=== PATIENT | male | born 1970 | race Caucasian/White ===

== ENCOUNTER 2016-12-10 01:42 | Emergency (ER) | payer MEDICAID ==
[~2016-12-10] VITALS: Ht 185.4 cm; Wt 71.0 kg
[2016-12-10 01:47] VITALS: Ht 185.4 cm; Wt 71.0 kg
[2016-12-10] MEDS ORDERED: ONDANSETRON 4 MG INJ IV STA (01:47)
[2016-12-10] MEDS ORDERED: morphine 4 MG/ML VIAL IV STA (01:47)
[2016-12-10] MEDS ORDERED: SOD CHLORIDE 0.9% 1,000 ML IV STA (01:47)
[2016-12-10 02:18] LABS: ADD UMIC YES; URINE BILIRUBIN (Dip) NEGATIVE (NEGATIVE); URINE BLOOD (Dip) 2+ (NEGATIVE); URINE COLOR LT. YELLOW (YELLOW); URINE GLUCOSE (Dip) NEGATIVE (NEGATIVE); URINE KETONES (Dip) NEGATIVE (NEGATIVE); URINE LEUKOCYTE ESTERASE (Dip) NEGATIVE (NEGATIVE); URINE NITRITE (Dip) NEGATIVE (NEGATIVE); URINE TOTAL PROTEIN (Dip) NEGATIVE (NEGATIVE); URINE UROBILINOGEN (Dip) 0.2 E.U./dL (0.1-1.0)
[2016-12-10 02:19] LABS: BASOPHIL # 0.1 10^3/ul (0.0-0.1); BASOPHILS % 0.7 % (0.0-2.0); EOSINOPHILS # 0.8 10^3/ul (0.0-0.5); EOSINOPHILS % 6.9 % (0.0-7.0); HEMATOCRIT 42.9 % (42.0-52.0); HEMOGLOBIN 14.3 g/dl (14.0-18.0); LYMPHOCYTES # 6.3 10^3/ul (0.8-2.9); LYMPHOCYTES % 56.6 % (15.0-51.0); MEAN CORPUSCULAR HEMOGLOBIN 29.4 pg (29.0-33.0); MEAN CORPUSCULAR HGB CONC 33.4 g/dl (32.0-37.0); MEAN CORPUSCULAR VOLUME 87.9 fl (82.0-101.0); MEAN PLATELET VOLUME 10.3 fl (7.4-10.4); MONOCYTE # 0.7 10^3/ul (0.3-0.9); MONOCYTES % 5.9 % (0.0-11.0); NEUTROPHIL # 3.3 10^3/ul (1.6-7.5); NEUTROPHILS % 29.9 % (39.0-77.0); PLATELET COUNT 214 10^3/UL (140-440); RED BLOOD COUNT 4.88 10^6/ul (4.70-6.10); RED CELL DISTRIBUTION WIDTH 13.7 % (11.5-14.5); UNCORRECTED WBC 11.1 10^3/ul (4.8-10.8); WHITE BLOOD COUNT 11.1 10^3/ul (4.8-10.8)
[2016-12-10 02:22] LABS: CONDITION 1; LH ANALYZER COMMENTS 1
[2016-12-10 02:28] LABS: ALBUMIN 4.1 g/dl (3.3-4.9)
[2016-12-10 02:29] LABS: POTASSIUM 3.3 mmol/L (3.5-5.1)
--- NOTE | 2016-12-10 02:30 | RADRPT ---
PROCEDURE: CT Abdomen and pelvis without contrast. CLINICAL INDICATION: Abdominal pain. TECHNIQUE: CT scan of the abdomen and pelvis was performed on a multi-detector high-resolution CT scanner. Contiguous axial images were obtained from the lung bases to the ischial tuberosities wit hout intravenous contrast. Coronal and sagittal reformatted images were also obtained. Images were reviewed on the PACS workstation. One or more of the following dose reduction techniques were used: - Automated exposure control. - Adjustment of the mA and/or kV according to patient size. - Use of iterative reconstruction technique. Exam CTD/vol = 10.12 mGy. Total exam DLP = 635.73 mGy-cm. COMPARISON: None. FINDINGS: Evaluation of the lung bases demonstrates mild bibasilar atelectasis. Abdomen: The liver is normal in size and diffusely low in attenuation consistent with fatty infiltr ation. There is no focal mass or dilatation of the biliary tree. The gallbladder is not distended. The spleen, pancreas and bilateral adrenal glands are within normal limits. Bilateral kidneys are normal in size with no contour deforming mass identified. There is no radiopaque renal or ureteral calculus identified. There is no hydronephrosis or hydroureter. There is no retroperitoneal adeno irma. The abdominal aorta is of normal caliber. There is mild thickening of the colon. There is no bowel obstruction or free air. A normal appendi x is identified. There is colonic diverticulosis without evidence of diverticulitis. There is no a scites. Pelvis: The bladder is unremarkable. There is a small left inguinal hernia containing fat. The pr ostate and seminal vesicles are within normal limits. There is no significant pelvic adenopathy or free fluid. Evaluation of the osseous structures demonstrates no suspicious lytic or blastic lesion. There is a hemangioma within the T10 vertebral body. IMPRESSION: Mild thickening of the colon represents nonspecific infectious/inflammatory colitis. Colonic diverticulosis without evidence of diverticulitis. Fatty infiltration of the liver. Mild bibasilar atelectasis. Small left inguinal hernia containing fat. .Tian Piper MD, Date Time Electronically viewed and signed by .Tian Piper MD, MD on 12/10/2016 02:30 .T/
[2016-12-10 02:31] LABS: ALBUMIN/GLOBULIN RATIO 1.13; BILIRUBIN,INDIRECT 0.2 mg/dl (0-1.1); BILIRUBIN,TOTAL 0.2 mg/dl (0.2-1.3); CREATININE 0.96 mg/dl (0.61-1.24); TOTAL PROTEIN 7.7 g/dl (6.1-8.1)
[2016-12-10 02:32] LABS: CALCIUM 8.8 mg/dl (8.4-10.2)
[2016-12-10] MEDS ORDERED: ONDA4TAB14 PO (02:38)
[2016-12-10] MEDS ORDERED: METR500T14 PO (02:38)
[2016-12-10] MEDS ORDERED: TRAM50TA2 PO (02:38)
[2016-12-10] MEDS ORDERED: CIPR500T4 PO (02:38)
--- NOTE | 2016-12-10 02:39 | ERD ---
ER Documentation Chief Complaint Date/Time DATE: 12/10/16 TIME: 02:38 Chief Complaint RLQ abd pain radiating to back x 1 hour, labored breathing, gaurded HPI 4 pain is mild to moderate in intensity 6-year-old male with right lower quadrant abdominal pain rating his back for an hour. He has had 2 episodes of diarrhea. No fevers or chills. Mild nausea but no vomiting. No other current complaints. Pain is mild to moderate in intensity ROS All systems reviewed and are negative except as per history of present illness. Medications Home Meds Active Scripts Tramadol HCl (Tramadol HCl) 50 Mg Tablet, 50 MG PO Q6H Y for PAIN, #20 TAB Prov:JUDAH PARSONS S. 12/10/16 Ondansetron (Ondansetron Odt) 4 Mg Tab.rapdis, 4 MG PO Q6H Y for NAUSEA AND/OR VOMITING, #10 TAB Prov:JUDAH PARSONS S. 12/10/16 Metronidazole (Flagyl) 500 Mg Tab, 500 MG PO Q8 for 7 Days, TAB Prov:JUDAH PARSONS S. 12/10/16 Ciprofloxacin Hcl* (Ciprofloxacin Hcl*) 500 Mg Tablet, 500 MG PO BID for 7 Days , TAB Prov:JUDAH PARSONS S. 12/10/16 Allergies Allergies: Coded Allergies: No Known Drug Allergy (Verified Allergy, Unknown, 12/10/16) PMhx/Soc Medical and Surgical Hx: pt denies Medical Hx, pt denies Surgical Hx Hx Alcohol Use: No Hx Substance Use: No Hx Tobacco Use: No Smoking Status: Never smoker Physical Exam Vitals Vital Signs Date Time Temp Pulse Resp B/P Pulse Ox O2 Delivery O2 Flow Rate FiO2 12/10/16 01:47 95.8 82 29 129/90 100 Physical Exam Const: [] Head: Atraumatic Eyes: Normal Conjunctiva ENT: Normal External Ears, Nose and Mouth. Neck: Full range of motion..~ No meningismus. Resp: Clear to auscultation bilaterally Cardio: Regular rate and rhythm, no murmurs Abd: Soft, non tender, non distended. Normal bowel sounds Skin: No petechiae or rashes Back: No midline or flank tenderness Ext: No cyanosis, or edema Neur: Awake and alert Psych: Normal Mood and Affect Result Diagram: 12/10/16 0148 Results 24 hrs Laboratory Tests Test 12/10/16 01:48 12/10/16 02:06 Basophils # 0.110^3/ul Basophils % 0.7% Eosinophils # 0.810^3/ul Eosinophils % 6.9% Hematocrit 42.9% Hemoglobin 14.3g/dl Lymphocytes # 6.310^3/ul Lymphocytes % 56.6% Mean Corpuscular Hemoglobin 29.4pg Mean Corpuscular Hemoglobin Concent 33.4g/dl Mean Corpuscular Volume 87.9fl Mean Platelet Volume 10.3fl Monocytes # 0.710^3/ul Monocytes % 5.9% Neutrophils # 3.310^3/ul Neutrophils % 29.9% Nucleated Red Blood Cells # 0.010^3/ul Nucleated Red Blood Cells % 0.0/100WBC Platelet Count 23310^3/UL Red Blood Count 4.8810^6/ul Red Cell Distribution Width 13.7% White Blood Count 11.110^3/ul Urine Bilirubin NEGATIVE Urine Clarity CLEAR Urine Color LT. YELLOW Urine Glucose NEGATIVE% Urine Hemoglobin 2+ Urine Ketones NEGATIVE Urine Leukocyte Esterase NEGATIVE Urine Microscopic RBC Pending Urine Microscopic WBC Pending Urine Nitrite NEGATIVE Urine Specific [place] 1.025 Urine Total Protein NEGATIVE Urine Urobilinogen 0.2 E.U./dL Urine pH 6.0 Current Medications Medications (Trade) Dose Ordered Sig/Familia Route PRN Reason Start Time Stop Time Status Last Admin Dose Admin Sodium Chloride (NS) 1,000 ml @ 1,000 mls/hr Q1H STAT IV 12/10/16 01:47 12/10/16 02:46 12/10/16 01:52 Morphine Sulfate (morphine) 4 mg ONCE STAT IV 12/10/16 01:47 12/10/16 01:48 DC 12/10/16 01:52 Ondansetron HCl (Zofran Inj) 4 mg ONCE STAT IV 12/10/16 01:47 12/10/16 01:48 DC 12/10/16 01:52 Procedures/MDM Medical decision-making: Gentleman comes in with looks to be colitis based on CT scan of symptomology. At this point clinically stable for outpatient management. Discharge from Cipro, Flagyl, tramadol, Zofran. Return in 8 hours for serial abdominal exams. Departure Diagnosis: Primary Impression: Abdominal pain Abdominal location: unspecified location Qualified Code: R10.9 - Abdominal pain, unspecified location Condition: Stable Patient Instructions: Gastroenteritis, Bacterial (Child) (Adult) JUDAH PARSONS Dec 10, 2016 02:39
[2016-12-10 02:57] VITALS: BP 116/73; PULSE 73; RESP 16
== END 2016-12-10 02:57 | disposition home or self-care (01) ==
LOC: E/R 01:42
DX: R10.31 Right lower quadrant pain (principal); R11.0 Nausea
CPT/HCPCS: 36415; 74176; 80053; 81001; 83690; 85025; 96374; 96375; J2270; J2405; J7030; Z7502; 81003

== ENCOUNTER 2018-07-14 08:09 | Emergency (ER) | END 2018-07-14 13:04 | disposition home or self-care (01) ==

== ENCOUNTER 2019-06-12 08:32 | Emergency (ER) | payer MEDICAID ==
[~2019-06-12] VITALS: Ht 172.7 cm; Wt 77.8 kg
[~2019-06-12 08:32] MED LIST: AMOX1TAB10 PO; CIPR500T4 PO; METR-121 PO; MOME17SP14 NASAL; ONDA4TAB14 PO; TRAM50TA2 PO
[2019-06-12 08:37] VITALS: Ht 172.7 cm; Wt 77.8 kg
--- NOTE | 2019-06-12 09:16 | ERD ---
ER Documentation Chief Complaint Chief Complaint c/o CHEW back of head rad to back x3 days HPI Patient is a 49 years old male denies all past medical history presenting to the ED for headache since Saturday. Patient reports of SOB, difficulty breathing, bilateral ear pressure/pain. Denies fever, chills, night sweats, coryza, throat pain, sinus pressure, nausea, emesis, abdominal pain. Patient admits to OTC tylenol without resolution. Patient is reporting of headache radiating to his chest but denies chest pain. ROS All systems reviewed and are negative except as per history of present illness. Medications Home Meds Active Scripts Mometasone Furoate* (Nasonex*) 50 Mcg/[place] - 17 Gm [place].pump, 2 SPRAY NASAL BID, #1 BOTTLE TO EACH NOSTRIL Prov:SHAWANDA BUCKNER PA-C 06/12/19 Amoxicillin/Potassium Clav (Amox-Clav 875-125 mg Tablet) 875-125 mg Tab, 1 TAB PO BID for 10 Days, #20 TAB Prov:SHAWANDA BUCKNER PA-C 06/12/19 Tramadol HCl (Tramadol HCl) 50 Mg Tablet, 50 MG PO Q6 PRN for PAIN, #20 TAB Prov:BRIDGER FRANKEL PA-C 07/14/18 Ondansetron (Ondansetron Odt) 4 Mg Tab.rapdis, 4 MG PO Q6H PRN for NAUSEA AND/OR VOMITING, #10 TAB Prov:BRIDGER FRANKEL PA-C 07/14/18 Ciprofloxacin Hcl* (Ciprofloxacin Hcl*) 500 Mg Tablet, 500 MG PO BID for 10 Days, TAB Prov:BRIDGER FRANKEL PA-C 07/14/18 Tramadol HCl (Tramadol HCl) 50 Mg Tablet, 50 MG PO Q6H PRN for PAIN, #20 TAB Prov:JUDAH PARSONS. 12/10/16 Ondansetron (Ondansetron Odt) 4 Mg Tab.rapdis, 4 MG PO Q6H PRN for NAUSEA AND/OR VOMITING, #10 TAB Prov:JUDAH PARSONS S. 12/10/16 Metronidazole (Flagyl) 500 Mg Tab, 500 MG PO Q8 for 7 Days, TAB Prov:JUDAH PARSONS. 12/10/16 Ciprofloxacin Hcl* (Ciprofloxacin Hcl*) 500 Mg Tablet, 500 MG PO BID for 7 Days, TAB Prov:JUDAH PARSONS 12/10/16 Allergies Allergies: Coded Allergies: No Known Drug Allergy (Verified Allergy, Unknown, 12/10/16) PMhx/Soc Medical and Surgical Hx: pt denies Medical Hx, pt denies Surgical Hx History of Surgery: No Anesthesia Reaction: No Hx Neurological Disorder: No Hx Respiratory Disorders: No Hx Cardiac Disorders: No Hx Psychiatric Problems: No Hx Miscellaneous Medical Probl: No Hx Alcohol Use: No Hx Substance Use: No Hx Tobacco Use: No Smoking Status: Never smoker Physical Exam Vitals Vital Signs Date Temp Pulse Resp B/P (MAP) Pulse Ox O2 O2 Flow FiO2 Time Delivery Rate 06/12/19 78 18 112/78 100 Room Air 10:28 (89) 06/12/19 98.1 66 20 109/60 100 08:37 (76) Physical Exam Const: No acute distress Head: Atraumatic. Left sinus tenderness. Eyes: Normal Conjunctiva ENT: Normal External Ears, Nose and Mouth. Left tympanic membrane erythematous without discharge or perforation noted. Negative mastoid tenderness. Neck: Full range of motion. No meningismus. Resp: Clear to auscultation bilaterally Cardio: Regular rate and rhythm, no murmurs Psych: Normal Mood and Affect Results 24 hrs Current Medications Medications Dose Sig/Familia Start Time Status Last (Trade) Ordered Route PRN Stop Time Admin Dose Reason Admin 125 mg ONCE ONCE 06/12/19 DC 06/12/19 Methylprednis IM 09:30 09:26 olone Sodium 06/12/19 09:31 Succinate (Solu-Medrol) Procedures/MDM Patient was seen and evaluated for headache, head pressure, shortness of breath. Patient was given Solu-Medrol 25 IM with improvement of headache with resolution of symptoms. EKG: Rate/Rhythm: Normal Sinus Rhythm QRS, ST, T-waves: No changes consistent w/ acute ischemia Impression: No evidence of ischemia or arrhythmia Chest x-ray revealed no evidence for active cardiopulmonary disease. Patient is most likely experiencing left otitis media with sinusitis without complications. Patient will be discharged with Augmentin and Nasonex. Patient stable ready for discharge. Patient advised to follow-up with his PCP. Departure Diagnosis: Primary Impression: Left otitis media Otitis media type: suppurative Chronicity: acute Recurrence: non- recurrent Spontaneous tympanic membrane rupture: without spontaneous rupture Qualified Codes: H66.002 - Acute suppurative otitis media without spontaneous rupture of ear drum, left ear Additional Impression: Left maxillary sinusitis Condition: Stable Patient Instructions: Acute Sinusitis, Otitis Media, Abx Tx (Adult) Referrals: [facility] Additional Instructions: Paciente aconseja volver a Departamento de urgencias inmediatamente para sntomas nuevos o que empeoran . Paciente aconseja posteriores con el PCP en 2-3 mancini . Paciente verbaliza la comprehensin y est de acuerdo con el tratamiento y el curso de accin. Si el paciente no tiene ninguna de atencin primaria pueden seguir con [facility] [address] [place] [address] [address] SHAWANDA BUCKNER PA-C Jun 12, 2019 09:14
[2019-06-12] MEDS ORDERED: METHYLPREDNISOLONE 125 MG INJ IM ONE (09:30)
[2019-06-12 10:28] VITALS: BP 112/78; PULSE 78; RESP 18
== END 2019-06-12 10:30 | disposition home or self-care (01) ==
LOC: FTE 08:32
DX: H66.002 Acute suppurative otitis media without spontaneous rupture of ear drum, left ear (principal); J32.0 Chronic maxillary sinusitis; R06.02 Shortness of breath
CPT/HCPCS: 71046; 93005; 96372; J2930; Z7502